=== PATIENT | female | born 1950 | race Caucasian/White ===

== ENCOUNTER → 2017-05-29 | Outpatient (CLI) | payer MEDICARE, BC ==
--- NOTE | 2017-05-30 11:01 | MM ---
Reason for exam: screening (asymptomatic). Last mammogram was performed 1 year and 3 months ago. History: Patient is postmenopausal, has history of other cancer at age 19, and is nulliparous. Took estrogen for 7 years 5 months. Physical Findings: A clinical breast exam by your physician is recommended on an annual basis and results should be correlated with mammographic findings. MG Screening Mammo w CAD Bilateral CC and MLO view(s) were taken. Prior study comparison: March 07, 2016, bilateral MG screening mammo w CAD. February 23, 2015, bilateral MG screening mammo w CAD. There are scattered fibroglandular densities. Stable benign calcifications. There is no discrete abnormality. No significant changes when compared with prior studies. ASSESSMENT: Benign, BI-RAD 2 RECOMMENDATION: Routine screening mammogram of both breasts in 1 year.
== END ==
LOC: RADMAMWWP 09:48
PROVIDERS: ATTEND Family Medicine
DX: Z12.31 Encounter for screening mammogram for malignant neoplasm of breast (principal)

== ENCOUNTER → 2018-12-03 | Outpatient (CLI) | payer MEDICARE, BC ==
[2018-12-03 17:18] LABS: LDL Cholesterol,Calculated 68.2 mg/dL (0.0-131.0); VLDL Calculation 14.8 mg/dL (5.00-40.00)
== END | disposition home or self-care (01) ==
LOC: LABWHC1 09:10
PROVIDERS: ATTEND Family Medicine
DX: M85.80 Other specified disorders of bone density and structure, unspecified site (principal); E78.00 Pure hypercholesterolemia, unspecified; Z13.1 Encounter for screening for diabetes mellitus
CPT/HCPCS: 36415; 80061; 82306; 82947; 84450; 84460

== ENCOUNTER → 2018-12-30 | Outpatient (CLI) | payer MEDICARE, BC ==
--- NOTE | 2018-12-30 18:52 | BD ---
EXAMINATION TYPE: Axial Bone Density DATE OF EXAM: 12/30/2018 COMPARISON: 02/23/2015 CLINICAL HISTORY: 68-year-old female disorder of bone Height: 60.2 IN Weight: 195 LBS FRAX RISK QUESTIONS: Secondary Osteoporosis: 3. Menopause before 45: YES TOTAL HYST AGE 34 RISK FACTORS HISTORY OF: Family History of Osteoporosis: YES MOTHER Active: YES MEDICATIONS: Osteoporosis Medications: NOT NOW Which medication: Fosamax How Long: AGE 45-56 Additional Medications: CALCIUM, VIT D, CHOLESTEROL MED, FISH OIL. COQ10, OCUVITE EXAM MEASUREMENTS: Bone mineral densitometry was performed using the [employer] System. Bone mineral density as measured about the Lumbar spine is: ----- L1-L4(G/cm2): 1.161 T Score Values are as follows: ----- L2: -0.6 ----- L3: 0.1 ----- L4: 0.0 ----- L1-L4: -0.2 Bone mineral density has: Increased 6.0% since study of: 02/23/2015 Bone mineral density about the R hip (g/cm2): 0.786 Bone mineral density about the L hip (g/cm2): 0.747 T Score values are as follows: -----R Neck: -1.8 -----L Neck: -2.1 -----R Total: -1.1 -----L Total: -1.5 Bone mineral density has: Decreased -2.0% since study of: 02/23/2015 IMPRESSION: Osteopenia (T Score between -2.5 and -1). There is slightly increased risk of fracture and the patient may be considered for treatment. Re-Screen 2-5 years. NOTE: T-SCORE=SD OF THE YOUNG ADULT MEAN.
--- NOTE | 2019-01-01 12:46 | MM ---
Reason for exam: screening (asymptomatic). Last mammogram was performed 1 year and 7 months ago. History: Patient is postmenopausal, has history of other cancer at age 19, and is nulliparous. Took estrogen for 7 years 5 months. Physical Findings: A clinical breast exam by your physician is recommended on an annual basis and results should be correlated with mammographic findings. MG 3D Screening Mammo W/Cad Bilateral CC and MLO view(s) were taken. Prior study comparison: May 29, 2017, bilateral MG screening mammo w CAD. March 07, 2016, bilateral MG screening mammo w CAD. There are scattered fibroglandular densities. There is chronic nodularity bilaterally. No significant changes when compared with prior studies. ASSESSMENT: Benign, BI-RAD 2 RECOMMENDATION: Routine screening mammogram of both breasts in 1 year.
== END ==
LOC: RADMAMWWP 12:50
PROVIDERS: ATTEND Family Medicine
DX: Z12.31 Encounter for screening mammogram for malignant neoplasm of breast (principal); M85.80 Other specified disorders of bone density and structure, unspecified site
CPT/HCPCS: 77063; 77067; 77080

== ENCOUNTER 2019-02-19 08:45 | Day surgery (SDC) | payer MEDICARE, BC ==
[2019-02-14 14:27] VITALS: BMI 33.8
[~2019-02-19 08:45] MED LIST: LACTATED RINGERS 1,000 ML IV SCH
[2019-02-19 09:46] VITALS: TEMP 97.7
--- NOTE | 2019-02-19 10:34 | P.GSHP ---
History of Present Illness H&P Date: 02/19/19 CHIEF COMPLAINT: Colon screen HISTORY OF PRESENT ILLNESS: The patient is a 68-year-old female who presents for colon screen. Lower endoscopy was offered for further evaluation and management. PAST MEDICAL HISTORY: Please see list. PAST SURGICAL HISTORY: Please see list. MEDICATIONS: Please see list. ALLERGIES: Please see list. SOCIAL HISTORY: No illicit drug use FAMILY HISTORY: No reports of Crohn disease or ulcerative colitis. REVIEW OF ORGAN SYSTEMS: CONSTITUTIONAL: No reports of fevers or chills. PHYSICAL EXAM: VITAL SIGNS: Stable GENERAL: Well-developed pleasant in no acute distress. HEENT: No scleral icterus. Extraocular movements grossly intact. Moist buccal mucosa. NECK: Supple without lymphadenopathy. CHEST: Unlabored respirations. Equal bilateral excursions. CARDIOVASCULAR: Regular rate and rhythm. Distal 2+ pulses. ABDOMEN: Soft, nontender, nondistended. MUSCULOSKELETAL: No clubbing, cyanosis, or edema. ASSESSMENT: 1. Colon screen. PLAN: 1. Recommend proceeding with a lower endoscopy Past Medical History Past Medical History: Cancer, Osteoarthritis (OA) Additional Past Medical History / Comment(s): HX OF SKIN CANCER. History of Any Multi-Drug Resistant Organisms: None Reported Past Surgical History: Cholecystectomy, Hernia Repair, Hysterectomy, Joint Replacement Additional Past Surgical History / Comment(s): BENIGN TUMOR UTERUS (1985), HYSTERECTOMY (1985), TOTAL RIGHT KNEE (2002), TOTAL LEFT KNEE (2003) Past Anesthesia/Blood Transfusion Reactions: Previous Problems w/ Anesthesia Additional Past Anesthesia/Blood Transfusion Reaction / Comment(s): STATES "MUSCLES SEIZED" UP AND SHE HAD SEVERE PAIN IN ALL HER MUSCLES. Past Psychological History: No Psychological Hx Reported Smoking Status: Never smoker Past Alcohol Use History: Rare Past Drug Use History: None Reported - Past Family History Sister(s) Family Medical History: Cancer Additional Family Medical History / Comment(s): BRAIN CANCER Medications and Allergies Home Medications Medication Instructions Recorded Confirmed Type Aspirin [Adult Low Dose Aspirin EC] 81 mg PO DAILY 02/14/19 02/19/19 History Atorvastatin [Lipitor] 20 mg PO DAILY 02/14/19 02/14/19 History Cholecalciferol (Vitamin D3) 1,000 unit PO DAILY 02/14/19 02/14/19 History [Vitamin D3] Fish Oil/Dha/Epa [Fish Oil 1,200 1 each PO DAILY 02/14/19 02/14/19 History mg Fish Oil] Ubidecarenone [Co Q-10] 100 mg PO DAILY 02/14/19 02/14/19 History Vit C/E/Zn/Coppr/Lutein/Zeaxan 1 each PO DAILY 02/14/19 02/14/19 History [Preservision Areds 2 Softgel] Allergies Allergy/AdvReac Type Severity Reaction Status Date / Time latex Allergy Unknown Unknown Verified 02/19/19 09:33 Surgical - Exam Vital Signs Temp Pulse Resp BP Pulse Ox 97.7 F 93 17 164/82 97 02/19/19 09:45 02/19/19 09:45 02/19/19 09:45 02/19/19 09:45 02/19/19 09:45
[2019-02-19] MEDS ORDERED: PROPOFOL 10 MG/ML 20 ML VIAL IV ONE (11:05)
--- NOTE | 2019-02-19 11:30 | P.PCN ---
Date of Procedure: 02/19/19 Description of Procedure: PREOPERATIVE DIAGNOSIS: Colonoscopy screening. POSTOPERATIVE DIAGNOSIS: Colonoscopy screening. Diverticulosis, scattered. OPERATION: Colonoscopy to the ileocecal valve and appendiceal orifice. SURGEON: Adina Velasco MD. ANESTHESIA: MAC. INDICATIONS: The patient is a 68-year-old female who presents for colonoscopy screening. Last colonoscopy 10 years ago. Benefits and risks were described and informed consent was obtained. DESCRIPTION OF PROCEDURE: The patient had undergone Suprep. She had been brought into the operating room and laid in the left lateral decubitus position. After adequate intravenous sedation, the rectum was examined with 2% lidocaine jelly. No external hemorrhoids were encountered. The rectal tone was within normal limits. No lesions were palpated in the rectal vault. An Olympus colonoscope was advanced until the ileocecal valve and appendiceal orifice were clearly viewed. The prep was excellent with clear visualization of the mucosal folds. The scope was removed with visualization of each mucosal fold. Scattered diverticulosis was encountered. No colonic polyps were found. No evidence of focal colitis was found. Retroflexion of the scope demonstrated grade 1 internal hemorrhoids without active bleeding or inflammation. The colon was desufflated. The patient had tolerated the procedure well. Withdrawal time was over 6 minutes. FINDINGS: Aronchick preparation quality scale 1 (1-5) Internal hemorrhoids, grade 2 External prolapsed hemorrhoids, grade 2 No arteriovenous malformations. No adenomatous polyps. Severe sigmoid diverticulosis No focal colitis. RECOMMENDATIONS: Lower endoscopy every 10 years per screening guidelines; however down to 5 years with family history of colon polyps or cancer. Plan - Discharge Summary New Discharge Prescriptions: No Action Atorvastatin [Lipitor] 20 mg PO DAILY Aspirin [Adult Low Dose Aspirin EC] 81 mg PO DAILY Vit C/E/Zn/Coppr/Lutein/Zeaxan [Preservision Areds 2 Softgel] 1 each PO DAILY Ubidecarenone [Co Q-10] 100 mg PO DAILY Fish Oil/Dha/Epa [Fish Oil 1,200 mg Fish Oil] 1 each PO DAILY Cholecalciferol (Vitamin D3) [Vitamin D3] 1,000 unit PO DAILY Discharge Medication List Aspirin [Adult Low Dose Aspirin EC] 81 mg PO DAILY 02/14/19 [History] Atorvastatin [Lipitor] 20 mg PO DAILY 02/14/19 [History] Cholecalciferol (Vitamin D3) [Vitamin D3] 1,000 unit PO DAILY 02/14/19 [History] Fish Oil/Dha/Epa [Fish Oil 1,200 mg Fish Oil] 1 each PO DAILY 02/14/19 [History] Ubidecarenone [Co Q-10] 100 mg PO DAILY 02/14/19 [History] Vit C/E/Zn/Coppr/Lutein/Zeaxan [Preservision Areds 2 Softgel] 1 each PO DAILY 02/14/19 [History] Follow up Appointment(s)/Referral(s): Adina Velasco MD [STAFF PHYSICIAN] - As Needed Patient Instructions/Handouts: Diverticulosis Diet (GEN), Diverticulosis (DC) Activity/Diet/Wound Care/Special Instructions: Repeat colonoscopy in 10 years or use [facility] Discharge Disposition: HOME SELF-CARE
[2019-02-19 11:34] VITALS: RESP 16
[2019-02-19 11:59] VITALS: BP 135/81; PULSE 84
== END 2019-02-19 12:27 | disposition home or self-care (01) ==
LOC: ORWHC2ENDO 08:45
PROVIDERS: ATTEND Surgery Plastic and Reconstructive Surgery
DX: Z12.11 Encounter for screening for malignant neoplasm of colon (principal); K57.30 Diverticulosis of large intestine without perforation or abscess without bleeding; K64.1 Second degree hemorrhoids; E78.5 Hyperlipidemia, unspecified; M19.90 Unspecified osteoarthritis, unspecified site; Z85.828 Personal history of other malignant neoplasm of skin; Z90.49 Acquired absence of other specified parts of digestive tract; Z90.710 Acquired absence of both cervix and uterus; Z96.653 Presence of artificial knee joint, bilateral; Z79.82 Long term (current) use of aspirin; Z79.899 Other long term (current) drug therapy; Z91.040 Latex allergy status; Z80.8 Family history of malignant neoplasm of other organs or systems
CPT/HCPCS: G0121; J2704